=== PATIENT | female | born 1945 | race Caucasian/White ===

== ENCOUNTER → 2017-09-19 | Outpatient (CLI) | payer MEDICARE, OTHER ==
--- NOTE | 2017-09-19 11:48 | Diagnostic Imaging Report ---
EXAM: DXA BONE DENSITY INDICATIONS: Osteopenia/ bone loss COMPARISON: [facility], DX, BONE DXA DUAL ENERGY, 12/02/2015, 10:00. FINDINGS: Right femoral neck bone mineral density (BMD) (g/cm2):0.689 Femur T-score (standard deviation relative to young adult mean BMD): -1.4 Femur Z-score (standard deviation relative to age-matched control group):0.4 Lumbar bone mineral density (BMD) (g/cm2):0.992 Lumbar T-score (standard deviation relative to young adult mean BMD): -0.5 Lumbar Z-score (standard deviation relative to age-matched control group):1.7 CONCLUSION: 1. WHO bone mineral classification: Low bone mass (osteopenia). 2. A 10 year major osteoporotic fracture risk is 9.1%, with a hip fracture risk is 2%. 3. There is a statistically significant decrease in left femoral bone mineral density by 8.4% relative to November 2015. World Health Organization Classification: *The Z-score is provided for informational purposes. The T-score is preferable for clinical decisions. RECOMMENDATIONS: Normal \T\ Osteopenia:Calcium supplementation, daily multiple vitamins, and adequate exercise as preventive measures against osteoporosis. Osteoporosis \T\ Severe Osteoporosis:In addition to the above pharmacologic therapy. Dictated by: Manuel Zuniga M.D. on 09/19/2017 at 11:47 Electronically approved by: Manuel Zuniga M.D. on 09/19/2017 at 11:47
== END ==
LOC: DX 10:14
PROVIDERS: ATTEND Internal Medicine
DX: M85.80 Other specified disorders of bone density and structure, unspecified site (principal)
CPT/HCPCS: 77080

== ENCOUNTER → 2017-09-29 | Outpatient (CLI) | payer MEDICARE, OTHER ==
--- NOTE | 2017-09-29 10:44 | Diagnostic Imaging Report ---
PROCEDURE:KNEES STANDING AP VIEW COMPARISON:None. INDICATIONS:BILATERAL KNEE PAIN FINDINGS: No acute, displaced fracture or dislocation. Moderate symmetric medial compartment joint space narrowing, marginal osteophytosis, and subchondral sclerosis. Soft tissues are unremarkable. 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 Dictated by: Rolo Nicolas M.D. on 09/29/2017 at 10:44 Electronically approved by: Rolo Nicolas M.D. on 09/29/2017 at 10:44
== END ==
LOC: RAD 09:16
PROVIDERS: ATTEND Internal Medicine
DX: M25.562 Pain in left knee (principal); M25.561 Pain in right knee; M17.0 Bilateral primary osteoarthritis of knee
CPT/HCPCS: 73565

== ENCOUNTER → 2018-07-13 | Outpatient (CLI) | payer MEDICARE, OTHER ==
--- NOTE | 2018-07-13 10:57 | Diagnostic Imaging Report ---
EXAM: CHEST 2 VIEWS, PA and lateral DATE: 07/13/2018 10:18 AM INDICATION: COPD COMPARISON: None FINDINGS: LINES/TUBES: None LUNGS: No consolidations or edema. PLEURA: No effusions or pneumothorax. HEART AND MEDIASTINUM: Mild cardiomegaly. Calcification within the aortic knob. BONES AND SOFT TISSUES: Degenerative changes of the spine. IMPRESSION: No acute thoracic abnormality. Signed by: Dr. Emre Hoyt DO on 07/13/2018 10:53 AM
== END ==
LOC: RAD 10:07
PROVIDERS: ATTEND Internal Medicine
DX: J44.9 Chronic obstructive pulmonary disease, unspecified (principal)
CPT/HCPCS: 71046

== ENCOUNTER → 2018-09-26 | Outpatient (CLI) | payer MEDICARE, OTHER ==
[~2018-09-26] MED LIST: IOPAMIDOL 370 MG/ML 200 ML INFUS..BTL INJ ONE; SODIUM CHLORIDE 0.9% 100 ML 100 ML ONE
[2018-09-26 10:46] LABS: BLOOD UREA NITROGEN 19 mg/dL (7-26); BUN/CREATININE RATIO 25 (6-25); CREATININE, SERUM 0.76 mg/dL (0.57-1.11); EST GLOMERULAR FILTRATION RATE > 60 ML/MIN (60-)
--- NOTE | 2018-09-26 12:29 | Diagnostic Imaging Report ---
CTA NECK, CTA BRAIN HISTORY: Carotid stenosis COMPARISON: None. TECHNIQUE: CTA of the head and neck was performed with intravenous iodine based contrast. Coronal, sagittal, and 3-D/oblique maximum intensity projection reformations were created. Noncontrast head CT was obtained as well. One or more of the following dose reduction techniques were used: Automated exposure control, adjustment of the mA and/or kV according to patient size, and/or utilization of iterative reconstruction technique. DISCUSSION: HEAD CT: Scalp/Skull: Unremarkable. Brain sulci: Mildly prominent. Ventricles: Compensatory dilatation. Extra-axial spaces: No masses or fluid collections. Parenchyma: Mild bilateral deep white matter hypodensity is likely chronic microvascular ischemic change. Otherwise, no masses, hemorrhage, or large vascular territory acute infarct. Dural sinuses: No abnormal densities. Sellar/Suprasellar region: Intact. Skull base: Intact. Incidental findings: Both ocular lenses are thinned. CERVICAL CTA: If present, any cervical carotid stenosis will be measured as a percentage relative to the [place] artery distal to the stenosis (NASCET). There are mild calcifications in the aortic arch and proximal great vessels. Right Carotid: Mild calcified plaque without significant stenosis. The right internal carotid artery has a slight retropharyngeal course. Left Carotid: Mild calcified plaque without significant stenosis. The left internal carotid artery has a slight retropharyngeal course. Right vertebral artery: Patent, no abnormalities. Left vertebral artery: Patent, no abnormalities. INTRACRANIAL CTA: Carotid arteries: Minimal bilateral carotid siphon calcifications are present without significant stenosis. No abnormalities in the A1 or M1 segments. Vertebrobasilar Circulation: Right vertebral artery: Patent, no abnormalities. Left vertebral artery: Patent, no abnormalities. Basilar artery: There is a questionable small fenestration in the lower basilar artery. Otherwise, patent and without abnormality. Posterior cerebral arteries: Patent, no abnormalities. Normal Variants: ACom: Not visualized. PComs: Patent bilaterally, left greater than right. Vertebral arteries: Left slightly dominant. The major dural venous sinuses are grossly patent. Additional findings: There are mild degenerative changes throughout the spine. Mild mosaic attenuation in the upper lungs is nonspecific. IMPRESSION: Head CT: 1. No acute intracranial abnormalities. 2. Mild supratentorial chronic microvascular ischemic change. Mild generalized cerebral volume loss. CTA: 1. Mild bilateral carotid bulb calcified plaque without significant stenosis. 2. Minimal carotid siphon calcification without significant stenosis. 3. Questionable small fenestration in the lower basilar artery, a normal variant. 4. Otherwise, no cervical or intracranial CTA abnormalities. Signed by: Dr. Boom Taylor M.D. on 09/26/2018 12:26 PM
== END ==
LOC: CT 09:39
PROVIDERS: ATTEND Internal Medicine
DX: I65.23 Occlusion and stenosis of bilateral carotid arteries (principal)
CPT/HCPCS: 36415; 70496; 70498; 82565; 84520; Q9967

== ENCOUNTER → 2019-03-18 | Day surgery (SDC) | payer MEDICARE, OTHER ==
[2019-03-15 11:08] LABS: BASOPHILS % 0.4 % (0.0-1.0); EOSINOPHILS # (AUTO) 0.1 (0.0-0.4); EOSINOPHILS % 1.3 % (0.0-6.0); HEMATOCRIT 45.3 % (34.2-44.1); HEMOGLOBIN 14.9 g/dL (12.0-16.0); LYMPHOCYTES # (AUTO) 2.9 (1.0-3.2); LYMPHOCYTES % 31.3 % (18.0-39.1); MEAN CORPUSCULAR HEMOGLOBIN 30.4 pg (28-32); MEAN CORPUSCULAR HGB CONC 32.9 g/dL (31-35); MEAN CORPUSCULAR VOLUME 92.4 fL (81-99); MONOCYTES # (AUTO) 0.9 (0.2-0.8); MONOCYTES % 9.9 % (4.4-11.3); NEUTROPHILS # (AUTO) 5.2 (2.1-6.9); NEUTROPHILS % 56.8 % (38.7-80.0); PLATELET COUNT 301 x10e3/uL (140-360)
[~2019-03-18] MED LIST changes: +ASPIR 8181 MG PO; +COQ-10100 MG PO; -IOPAMIDOL 370 MG/ML 200 ML INFUS..BTL INJ ONE; +LIDOCAINE HCL 2% LOCAL INJ 5 ML SDV VIAL INJ ONE; +LISINOPRIL10 MG PO; +MELOXICAM7.5 MG PO; +METOPROLOL SUCC50 MG PO; +MOVE FREE PO; +OMEGA-31000 MG PO; +PRAVASTATIN SOD20 MG PO; +PROPOFOL IV EMULSION 10 MG/ML 20 ML VIAL ONE; -SODIUM CHLORIDE 0.9% 100 ML 100 ML ONE; +VITAMIN B12-FO1 EACH PO; +VITAMIN D32000 UNI1 PO
--- OUTSIDE RECORDS SUMMARY | 2019-03-18 11:06 | XMS REPORT | Clinical Summary ---
Author Author SARAH [facility] Address Unknown Phone Unavailable Care Team Providers Care Editorial Clerk Name Role Phone Sharpless PCP Allergies Comments Active Allergy Reactions Severity Noted Date [place] And Derivatives Itching 07/08/2015 Cortisone Swelling 07/07/2015 Gluten Protein Itching 07/08/2015 Crawfish and Lobster Shellfish Containing Nausea And Medium 10/05/2015 Products Vomiting Tomato (Solanum Itching 07/08/2015 Lycopersicum) Medications End Date Status Medication Sig Dispensed Refills Start Date Active fexofenadine (JONATHAN) Take 180 mg 0 180 MG tablet by mouth daily. Active acetaminophen (TYLENOL) Take 500 mg 0 500 MG tablet by mouth every 6 (six) hours as needed for Pain. Active Problems Problem Noted Date Chest pain 10/05/2015 Systolic heart failure 08/28/2015 Overview: LVEG 33-34% BB, ACEi Atrial flutter 08/27/2015 Overview: Cardiology consulted CELESTE arita 08/28- TTE ANTONIO / DCCV - > sinus rhythm ECHO shows akinetic segments in inferior and inferoseptal: concern for ischemic heart disease - ischemic work up as OP (EST) Hyperglycemia 08/27/2015 Social History Date Tobacco Use Types Packs/Day Years Used Current Every Day Smoker 0.5 Alcohol Use Drinks/Week oz/Week Comments No Sex Assigned at Date Recorded Not on file Industry Job Start Date Occupation Not on file Not on file Not on file Travel End Travel History Travel Start No recent travel history available. Last Filed Vital Signs Not on file Plan of Treatment Not on file Implants Device Identifier Shelf Expiration Date Model / Serial / Lot Implanted Type Area Manufactur er 04/08/2019 ZCB00 20.5 / [id number] / Iol,Tecnis 1-Piece Zcb00 20.5 - Ophthalmol Right: Eye ADVANCED [id number] ogy MEDICAL Implanted: Qty: 1 on 07/09/2015 by [employer] Austin Mulligan MD FORMER ALLERGAN 05/09/2019 QYL29-24.5 / [id number] / Iol Tecnis Zcb00 20.5 [place] Ophthalmol ADV MED Kwu62-93.5 - [id number] ogy [employer] Implanted: Qty: 1 on 10/22/2015 by Austin Mulligan MD Results Not on fileafter 03/17/2018 Insurance Payer Benefit Subscriber ID Type Phone Address Plan / Group MEDICARE MEDICARE A xxxxxxxxxx Medicare B [employer] - MGD UNITED PPO xxxxxxxxx PPO CARE OPTIONS Advance Directives For more information, please contact: [facility] [address] [place] [address] Date Inactivated Comments Code Status Date Activated 10/05/2015 7:19 PM Full Code 10/05/2015 10:05 AM This code status was determined by: Patient 08/28/2015 1:22 PM Full Code 08/28/2015 1:20 PM This code status was determined by: Patient 08/28/2015 1:20 PM Full Code 08/27/2015 8:56 PM This code status was determined by: Patient
--- OUTSIDE RECORDS SUMMARY | 2019-03-18 11:06 | XMS REPORT ---
Author Author [facility] Address Unknown Phone Unavailable Care Team Providers Care Traffic Attendant Name Role Phone WICHO CALDWELL Unavailable Unavailable Problems This patient has no known problems. Allergies, Adverse Reactions, Alerts This patient has no known allergies or adverse reactions. Medications This patient has no known medications. Results Test Description Test Time Test Comments Text Results Atomic Results Result Comments CTA BRAIN 2018-09-26 12:10:00 [place] [address] Patient Name: ELIZABETH LYNCH MR #: [id number] : 1945 Age/Sex: 73/F Req #: [id number] Adm Physician: Ordered by: WICHO CALDWELL MD Report #: [id number] Location: CT Room/Bed: Procedure: [id number] CT/CTA BRAIN Exam Date: 09/26/18 Exam Time: 1100 REPORT STATUS: Signed CTA NECK, CTA BRAIN HISTORY: Carotid stenosis COMPARISON: None. TECHNIQUE: CTA of the head and neck was performed with intravenous iodine based contrast. Coronal, sagittal, and 3-D/oblique maximum intensity projection reformations were created. Noncontrast head CT was obtained as well. One or more of the following dose reduction techniques were used: Automated exposure control, adjustment of the mA and/or kV according to patient size, and/or utilization of iterative reconstruction technique. DISCUSSION: HEAD CT: Scalp/Skull: Unremarkable. Brain sulci: Mildly prominent. Ventricles: Compensatory dilatation. Extra-axial spaces: No masses or fluid collections. Parenchyma: Mild bilateral deep white matter hypodensity is likely chronic microvascular ischemic change. Otherwise, no masses, hemorrhage, or large vascular territory acute infarct. Dural sinuses: No abnormal densities. Sellar/Suprasellar region: Intact. Skull base: Intact. Incidental findings: Both ocular lenses are thinned. CERVICAL CTA: If present, any cervical carotid stenosis will be measured as a percentage relative to the [place] artery distal to the stenosis (NASCET). There are mild calcifications in the aortic arch and proximal great vessels. Right Carotid: Mild calcified plaque without significant stenosis. The right internal carotid artery has a slight retropharyngeal course. Left Carotid: Mild calcified plaque without significant stenosis. The left internal carotid artery has a slight retropharyngeal course. Right vertebral artery: Patent, no abnormalities. Left vertebral artery: Patent, no abnormalities. INTRACRANIAL CTA: Carotid arteries: Minimal bilateral carotid siphon calcifications are present without significant stenosis. No abnormalities in the A1 or M1 segments. Vertebrobasilar Circulation: Right vertebral artery: Patent, no abnormalities. Left vertebral artery: Patent, no abnormalities. Basilar artery: There is a questionable small fenestration in the lower basilar artery. Otherwise, patent and without abnormality. Posterior cerebral arteries: Patent, no abnormalities. Normal Variants: ACom: Not visualized. PComs: Patent bilaterally, left greater than right. Vertebral arteries: Left slightly dominant. The major dural venous sinuses are grossly patent. Additional findings: There are mild degenerative changes throughout the spine. Mild mosaic attenuation in the upper lungs is nonspecific. IMPRESSION: Head CT: 1. No acute intracranial abnormalities. 2. Mild supratentorial chronic microvascular ischemic change. Mild generalized cerebral volume loss. CTA: 1. Mild bilateral carotid bulb calcified plaque without significant stenosis. 2. Minimal carotid siphon calcification without significant stenosis. 3. Questionable small fenestration in the lower basilar artery, a normal variant. 4. Otherwise, no cervical or intracranial CTA abnormalities. Signed by: Dr. Boom Taylor M.D. on 09/26/2018 12:26 PM Dictated By: BOOM TAYLOR MD 1226 Transcribed By: CARLOS on 09/26/18 1226 COPY TO: WICHO CALDWELL MD CTA NECK 2018-09-26 12:10:00 [facility] [address] [place] [address] Patient Name: ELIZABETH LYNCH MR #: [id number] : 1945 Age/Sex: 73/F Req #: [id number] Adm Physician: Ordered by: WICHO CALDWELL MD Report #: [id number] Location: CT Room/Bed: Procedure: [id number] CT/CTA NECK Exam Date: 09/26/18 Exam Time: 1100 REPORT STATUS: Signed CTA NECK, CTA BRAIN HISTORY: Carotid stenosis COMPARISON: None. TECHNIQUE: CTA of the head and neck was performed with intravenous iodine based contrast. Coronal, sagittal, and 3-D/oblique maximum intensity projection reformations were created. Noncontrast head CT was obtained as well. One or more of the following dose reduction techniques were used: Automated exposure control, adjustment of the mA and/or kV according to patient size, and/or utilization of iterative reconstruction technique. DISCUSSION: HEAD CT: Scalp/Skull: Unremarkable. Brain sulci: Mildly prominent. Ventricles: Compensatory dilatation. Extra-axial spaces: No masses or fluid collections. Parenchyma: Mild bilateral deep white matter hypodensity is likely chronic microvascular ischemic change. Otherwise, no masses, hemorrhage, or large vascular territory acute infarct. Dural sinuses: No abnormal densities. Sellar/Suprasellar region: Intact. Skull base: Intact. Incidental findings: Both ocular lenses are thinned. CERVICAL CTA: If present, any cervical carotid stenosis will be measured as a percentage relative to the [place] artery distal to the stenosis (NASCET). There are mild calcifications in the aortic arch and proximal great vessels. Right Carotid: Mild calcified plaque without significant stenosis. The right internal carotid artery has a slight retropharyngeal course. Left Carotid: Mild calcified plaque without significant stenosis. The left internal carotid artery has a slight retropharyngeal course. Right vertebral artery: Patent, no abnormalities. Left vertebral artery: Patent, no abnormalities. INTRACRANIAL CTA: Carotid arteries: Minimal bilateral carotid siphon calcifications are present without significant stenosis. No abnormalities in the A1 or M1 segments. Vertebrobasilar Circulation: Right vertebral artery: Patent, no abnormalities. Left vertebral artery: Patent, no abnormalities. Basilar artery: There is a questionable small fenestration in the lower basilar artery. Otherwise, patent and without abnormality. Posterior cerebral arteries: Patent, no abnormalities. Normal Variants: ACom: Not visualized. PComs: Patent bilaterally, left greater than right. Vertebral arteries: Left slightly dominant. The major dural venous sinuses are grossly patent. Additional findings: There are mild degenerative changes throughout the spine. Mild mosaic attenuation in the upper lungs is nonspecific. IMPRESSION: Head CT: 1. No acute intracranial abnormalities. 2. Mild supratentorial chronic microvascular ischemic change. Mild generalized cerebral volume loss. CTA: 1. Mild bilateral carotid bulb calcified plaque without significant stenosis. 2. Minimal carotid siphon calcification without significant stenosis. 3. Questionable small fenestration in the lower basilar artery, a normal variant. 4. Otherwise, no cervical or intracranial CTA abnormalities. Signed by: Dr. Boom Taylor M.D. on 09/26/2018 12:26 PM Dictated By: BOOM TAYLOR MD 1226 Transcribed By: CARLOS on 09/26/18 1226 COPY TO: WICHO CALDWELL MD CHEST 2 VIEWS 2018-07-13 10:52:00 [place] [address] Patient Name: ELIZABETH LYNCH MR #: [id number] : 1945 Age/Sex: 73/F Req #: [id number] Adm Physician: Ordered by: WICHO CALDWELL MD Report #: [id number] Location: [facility] Room/Bed: Procedure: [id number] DX/CHEST 2 VIEWS Exam Date: 07/13/18 Exam Time: 1030 REPORT STATUS: Signed EXAM: CHEST 2 VIEWS, PA and lateral DATE: 07/13/2018 10:18 AM INDICATION: COPD COMPARISON: None FINDINGS: LINES/TUBES: None LUNGS: No consolidations or edema. PLEURA: No effusions or pneumothorax. HEART AND MEDIASTINUM: Mild cardiomegaly. Calcification within the aortic knob. BONES AND SOFT TISSUES: Degenerative changes of the spine. IMPRESSION: No acute thoracic abnormality. Signed by: Dr. Susannah Hoyt DO on 07/13/2018 10:53 AM Dictated By: SUSANNAH HOYT DO 1053 Transcribed By: CARLOS on 07/13/18 1053 COPY TO: WICHO CALDWELL MD KNEES STANDING AP VIEW [place] [address] Patient Name: ELIZABETH LYNCH MR #: [id number] : 1945 Age/Sex: 72/F Req #: [id number] Adm Physician: Ordered by: WICHO CALDWELL MD Report #: [id number] Location: [facility] Room/Bed: Procedure: [id number] DX/KNEES STANDING AP VIEW Exam Date: 09/29/17 Exam Time: 1015 REPORT STATUS: Signed PROCEDURE: KNEES STANDING AP VIEW COMPARISON: None. INDICATIONS: BILATERAL KNEE PAIN FINDINGS: No acute, displaced fracture or dislocation. Moderate symmetric medial compartment joint space narrowing, marginal osteophytosis, and subchondral sclerosis. Soft tissues are unremarkable. 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 Dictated by: Robert Wilkes M.D. on 09/29/2017 at 10:44 Electronically approved by: Robert Wilkes M.D. on 09/29/2017 at 10:44 Dictated By: ROBERT WILKES MD 1044 Transcribed By: LISA on 09/29/17 1044 COPY TO: WICHO CALDWELL MD BONE DXA DUAL ENERGY [place] [address] Patient Name: ELIZABETH LYNCH MR #: [id number] : 1945 Age/Sex: 72/F Req #: [id number] Adm Physician: Ordered by: WICHO CALDWELL MD Report #: [id number] Location: DX Room/Bed: Procedure: [id number] DX/BONE DXA DUAL ENERGY Exam Date: Exam Time: REPORT STATUS: Signed EXAM: DXA BONE DENSITY INDICATIONS: Osteopenia/ bone loss COMPARISON: [facility], DX, BONE DXA DUAL ENERGY, 12/02/2015, 10:00. FINDINGS: Right femoral neck bone mineral density (BMD) (g/cm2): 0.689 Femur T-score (standard deviation relative to young adult mean BMD): -1.4 Femur Z-score (standard deviation relative to age-matched control group): 0.4 Lumbar bone mineral density (BMD) (g/cm2): 0.992 Lumbar T-score (standard deviation relative to young adult mean BMD): -0.5 Lumbar Z- score (standard deviation relative to age-matched control group): 1.7 CONCLUSION: 1. WHO bone mineral classification: Low bone mass (osteopenia). 2. A 10 year major osteoporotic fracture risk is 9.1%, with a hip fracture risk is 2%. 3. There is a statistically significant decrease in left femoral bone mineral density by 8.4% relative to November 2015. World Health Organization Classification: *The Z-score is provided for informational purposes. The T-score is preferable for clinical decisions. RECOMMENDATIONS: Normal T Osteopenia: Calcium supplementation, daily multiple vitamins, and adequate exercise as preventive measures against osteoporosis. Osteoporosis T Severe Osteoporosis: In addition to the above pharmacologic therapy. Dictated by: Angela Zuniga M.D. on 09/19/2017 at 11:47 Electronically approved by: Angela Zuniga M.D. on 09/19/2017 at 11:47 Dictated By: ANGELA ZUNIGA MD 1147 Transcribed By: LISA on 09/19/17 1147 COPY TO: WICHO CALDWELL MD
[2019-03-18 14:35] VITALS: BP 133/78
== END | disposition home or self-care (01) ==
LOC: OR 11:00
PROVIDERS: ATTEND Internal Medicine Gastroenterology
DX: Z12.11 Encounter for screening for malignant neoplasm of colon (principal); D12.4 Benign neoplasm of descending colon; I10 Essential (primary) hypertension; Z71.3 Dietary counseling and surveillance; E66.01 Morbid (severe) obesity due to excess calories; Z88.8 Allergy status to other drugs, medicaments and biological substances; Z91.013 Allergy to seafood; Z79.82 Long term (current) use of aspirin; Z01.810 Encounter for preprocedural cardiovascular examination; Z01.812 Encounter for preprocedural laboratory examination; K63.5 Polyp of colon; Z68.41 Body mass index [BMI] 40.0-44.9, adult
CPT/HCPCS: 36415; 45385; 85025; 88305; 93005; J2001; J2704

== ENCOUNTER → 2019-09-20 | Outpatient (CLI) | payer MEDICARE ==
[~2019-09-20] MED LIST changes: -LIDOCAINE HCL 2% LOCAL INJ 5 ML SDV VIAL INJ ONE; -PROPOFOL IV EMULSION 10 MG/ML 20 ML VIAL ONE
--- NOTE | 2019-09-20 10:26 | Diagnostic Imaging Report ---
EXAMINATION: CHEST 2 VIEWS INDICATION: Hypertension COMPARISON: Chest radiograph 07/13/2018 FINDINGS: LINES/TUBES:None LUNGS:The lungs are well-inflated. No focal consolidation or pulmonary edema. PLEURA:No pleural effusion or pneumothorax. MEDIASTINUM:The cardiomediastinal silhouette appears normal in size and shape. Atherosclerotic calcifications of the thoracic aorta. BONES/SOFT TISSUES:No acute osseous injury. ABDOMEN:No free air under the diaphragm. IMPRESSION: No focal pneumonia or pulmonary edema. Signed by: Elva Shook MD on 09/20/2019 10:23 AM
== END ==
LOC: RAD 09:47
PROVIDERS: ATTEND Internal Medicine
DX: I10 Essential (primary) hypertension (principal)
CPT/HCPCS: 71046

== ENCOUNTER → 2019-09-23 | Outpatient (CLI) | payer MEDICARE ==
--- NOTE | 2019-09-24 09:42 | Diagnostic Imaging Report ---
EXAMINATION: Bone mineral density study. COMPARISON: Bone mineral density study 09/19/2017 and 12/02/2015. HISTORY: Osteoporosis screening DISCUSSION: Evaluation of the left hip and lumbar spine was performed utilizing a DEXA Hologic bone densitometer. The study is technically adequate. The left hip total bone mineral density is 0.814 gm/cm2, the T-score is -1.0, and the Z-score is 0.6. The left hip femoral neck bone mineral density is 0.638 gm/cm2, the T-score is -1.9, and the Z-score is 0.1. The lumbar spine total bone mineral density is 1.009 gm/cm2, the T-score is -0.3, and the Z-score is 2.0. IMPRESSION: 1. WHO classification of osteopenia for the left hip with increased risk of fracture. Interval BMD change of -10.3% when compared to baseline and -2.1% when compared to previous 2. WHO classification of normal bone mineral density for the lumbar spine with no increased risk of fracture. Interval BMD change of +5.1% when compared to baseline and +1.7% when compared to previous The patient's fracture risk is compared to an age-matched control. Medical evaluation for secondary causes of low bone bone mineral density may be appropriate. Correlate clinically for the necessity and timing of the next bone mineral density study. National Osteoporosis Foundation recommendations: Initiate therapy to reduce fracture risk in postmenopausal women with -BMD t-scores below -2.0 by central DXA with no risk factors -BMD t-scores below -1.5 by central DXA with one or more risk factors (first deg relative with hip fracture, prior personal fracture, low body weight, smoking) -A prior vertebral or hip fracture AACE (Clinical Endocrinology) recommends treating the following: Postmenopausal women who have osteoporosis as diagnosed by fragility fractures or t scores -2.5 or below Postmenopausal women who have risk factors (including fh of hip fracture, low body weight, smoking, risk of falling, high bone turnover, advancing age) and borderline low BMD T scores of -1.5 or below Adequate intake of calcium (at least 1200mg/day) and vitamin D (400-800 IU/day). Regular weight bearing and muscle - strengthening exercises Avoid smoking and excessive alcohol Signed by: Dr. Mekhi De La Cruz M.D. on 09/24/2019 9:39 AM
== END ==
LOC: DX 12:47
PROVIDERS: ATTEND Internal Medicine
DX: Z13.820 Encounter for screening for osteoporosis (principal)
CPT/HCPCS: 77080

== ENCOUNTER 2020-12-18 09:58 | Outpatient (RCR) | payer MEDICARE, OTHER | END 2021-01-06 | LOC: PT 09:58 | PROVIDERS: ATTEND Internal Medicine | DX: R53.1 Weakness (principal); R29.6 Repeated falls ==

== ENCOUNTER → 2021-11-18 | Outpatient (CLI) | payer MEDICARE, OTHER | LOC: MAMMO 13:09 | PROVIDERS: ATTEND Internal Medicine | DX: Z12.31 Encounter for screening mammogram for malignant neoplasm of breast (principal); Z87.09 Personal history of other diseases of the respiratory system | CPT/HCPCS: 71046; 77067 ==